=== PATIENT | male | born 1995 | race Two or more races ===

== ENCOUNTER 2018-02-27 03:55 | Emergency (ER) | payer SELFPAY ==
[~2018-02-27] VITALS: Ht 160 cm; Wt 77.1 kg
[2018-02-27 04:20] VITALS: BP 136/82
[2018-02-27] MEDS ORDERED: LIDOCAINE 1%/EPI 1:100,000 20 ML VIAL. INJ ONE (04:45)
[2018-02-27] MEDS ORDERED: oxyCODONE/APAP 5/325 1 TAB TABLET PO ONE (04:45)
--- NOTE | 2018-02-27 04:48 | PHYS DOC ---
Past Medical History Past Medical History: No Pertinent History Adult General Chief Complaint Chief Complaint: ABSCESS HPI HPI Patient is a 22-year-old male who presents to the emergency department for evaluation. He states he wasn't present a couple months ago and developed an abscess on his buttocks, which was squeezed and drained with pressure. He states after getting out of [facility], he is developed a few other abscesses recurrently, and over the past 2 days has developed increasing discomfort and pain on his left buttocks. He denies any fevers or chills. Palpation of the affected area seems to worsen his pain. There are no alleviating factors to his symptoms. Review of Systems Review of Systems Constitutional: Denies fever or chills [] Eyes: Denies change in visual acuity, redness, or eye pain [] GI: Denies abdominal pain, nausea, vomiting, bloody stools or diarrhea [] : Denies dysuria or hematuria [] Musculoskeletal: Denies back pain or joint pain [] Integument: Abscesses, as noted per history of present illness[] Neurologic: Denies headache, focal weakness or sensory changes [] Endocrine: Denies polyuria or polydipsia [] Current Medications Current Medications Current Medications Medications (Trade) Dose Ordered Sig/Rainer Start Time Stop Time Status Last Admin Dose Admin Lidocaine/ Epinephrine (LIDOCAINE 1%-EPI 1:100,000 Multi-Dose) 20 ml 1X ONCE 02/27/18 04:45 02/27/18 04:46 UNV Oxycodone/ Acetaminophen (Percocet 5/325) 1 tab 1X ONCE 02/27/18 04:45 02/27/18 04:46 UNV Physical Exam Physical Exam PHYSICAL EXAM: CONSTITUTIONAL: Well developed, well nourished HEAD: normocephalic, atraumatic EENT: PERRL, EOMI. Conjunctivae normal color, sclerae non-icteric; moist mucous membranes. NECK: Supple, non-tender; no meningismus. LUNGS: Lungs CTA, breathing even and unlabored. Normal air movement. HEART: Regular rate and rhythm, no murmur CHEST: No deformity; non-tender ABDOMEN: The abdomen is soft, and non-tender, no masses or bruits. EXTREM: Normal ROM; no deformity, no calf tenderness. Normal pulses palpable in all extremities. There is no pedal edema. SKIN: On the left gluteal skin, there is an abscess posteriorly, measuring about half dollar size with mild fluctuance. At the junction of the buttocks and the posterior thigh on the left, there is also another small abscess. There is surrounding erythema to both of these lesions without any other discrete abscess is noted. NEURO: Alert; normal speech and cognition; CN's grossly intact; strength grossly intact without focal deficit. BACK: No CVA TTP. EKG EKG [] Radiology/Procedures Radiology/Procedures [] Course & Med Decision Making Course & Med Decision Making INCISION AND DRAINAGE PROCEDURE NOTE: The abscess located on the left buttocks was prepped with Betadine, anesthetized with 1% lidocaine [with epinephrine], and incised with #11 blade. A small amount of pus was obtained from the wound, the wound was probed with a blunt forceps and packed with gauze packing. The patient tolerated procedure well. Wound care instructions were discussed with the patient. The more inferior abscess did not seem to have adequate fluctuance to warrant incision and drainage at this time. 5:25 AM: The patient's condition remains stable. I discussed home care plan with oral and topical antibiotics, warm compresses, the need for close follow-up , and return precautions. Dragon Disclaimer Dragon Disclaimer This electronic medical record was generated, in whole or in part, using a voice recognition dictation system. Departure Departure Impression: Primary Impression: Cellulitis and abscess of buttock Disposition: 01 HOME, SELF-CARE Condition: STABLE Referrals: NO PCP (PCP) Patient Instructions: Abscess, Cellulitis, Incision and Drainage Scripts Mupirocin (MUPIROCIN OINTMENT) 22 Gm Oint...g. 1 PAULA TP TID for WOUND CARE for 10 Days, #1 TUBE Prov: MACRINA SMITH MD 02/27/18 Acetaminophen With Codeine (TYLENOL WITH CODEINE #3 TABLET) 1 Each Tablet 1 TAB PO PRN Q6HRS PRN for PAIN, #15 TAB Prov: MACRINA SMITH MD 02/27/18 Cephalexin (KEFLEX) 500 Mg Capsule 500 MG PO QID for 7 Days, #28 CAP Prov: MACRINA SMITH MD 02/27/18 Sulfamethoxazole/Trimethoprim (BACTRIM DS TABLET) 1 Each Tablet 1 TAB PO BID, #14 TAB Prov: MACRINA SMITH MD 02/27/18 MACRINA SMITH MD Feb 27, 2018 04:48
[2018-02-27] MEDS ORDERED: MUPI22OI2 TP (05:30)
[2018-02-27] MEDS ORDERED: SULF1TAB24 PO (05:30)
[2018-02-27] MEDS ORDERED: ACET-704 PO (05:30)
[2018-02-27] MEDS ORDERED: CEPH-264 PO (05:30)
== END 2018-02-27 05:40 | disposition home or self-care (01) ==
LOC: ER 03:55
DX: L02.31 Cutaneous abscess of buttock (principal); L03.317 Cellulitis of buttock
CPT/HCPCS: 10060; 99283; J3490